=== PATIENT | female | born 1955 | race American Indian/Alaskan Native ===

== ENCOUNTER 2018-05-10 18:33 | Emergency (ER) | payer OTHER ==
[2018-05-10 19:14] VITALS: RESP 16; BMI 28.3
--- NOTE | 2018-05-10 19:40 | ED PDOC ---
Arrival/HPI - General Chief Complaint: High Blood Pressure Time Seen by Provider: 05/10/18 19:23 Historian: Patient - History of Present Illness Narrative History of Present Illness (Text): 05/10/18 19:40 62 y/o female, whose PMH includes hypertension, who presents to the emergency department complaining of high blood pressure and questionable slurred speech that began this morning at 09:30 AM. Patient reports called her PMD who advised her to come to the emergency department for further evaluation. Upon EMS arrival , they noted no stroke or slurred speech. Additionally, patient states taking baby Aspirin on the daily and is a current smoker. Patient denies any shortness of breath, chest pain, cough, headache, nausea, vomiting, diarrhea, abdominal pain, focal weaknesses, or other complaints. Time/Duration: 4-6 hours Symptom Onset: Sudden Symptom Course: Unchanged Activities at Onset: Rest Context: Home Past Medical History - Provider Review Nursing Documentation Reviewed: Yes - Infectious Disease Hx of Infectious Diseases: None - Tetanus Immunization Tetanus Immunization: Unknown - Reproductive Menopause: No - Past Medical History Past Medical History: No Previous - Cardiac Hx Cardiac Disorders: Yes Hx Hypertension: Yes - Pulmonary Hx Respiratory Disorders: No - Neurological Hx Neurological Disorder: No Other/Comment: episode of memory loss 2 weeks ago - HEENT Hx HEENT Disorder: No - Renal Hx Renal Disorder: No - Endocrine/Metabolic Hx Endocrine Disorders: No - Hematological/Oncological Hx Blood Disorders: No - Integumentary Hx Dermatological Disorder: No - Musculoskeletal/Rheumatological Hx Musculoskeletal Disorders: No Hx Falls: No - Gastrointestinal Hx Gastrointestinal Disorders: No - Genitourinary/Gynecological Hx Genitourinary Disorders: No - Psychiatric Hx Psychophysiologic Disorder: No Hx Depression: No Hx Emotional Abuse: No Hx Physical Abuse: No Hx Substance Use: No - Past Surgical History Past Surgical History: No Previous - Surgical History Other/Comment: 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 - Suicidal Assessment Feels Threatened In Home Enviroment: No Family/Social History - Physician Review Nursing Documentation Reviewed: Yes Family/Social History: Unknown Family HX Smoking Status: Current Some Days Smoker Hx Alcohol Use: No Hx Substance Use: No Hx Substance Use Treatment: No Allergies/Home Meds Allergies/Adverse Reactions: Allergies No Known Allergies Allergy (Verified 05/10/18 19:14) Home Medications: Home Meds Medication Instructions Recorded Confirmed Nebivolol [Bystolic] 0 mg PO DAILY 12/08/16 12/08/16 hydroCHLOROthiazide [Hydrodiuril] 25 mg PO DAILY 12/08/16 12/08/16 Review of Systems - Review of Systems Constitutional: absent: Fevers Respiratory: absent: SOB Cardiovascular: absent: Chest Pain Gastrointestinal: absent: Abdominal Pain Genitourinary Female: absent: Dysuria Skin: absent: Rash Neurological: Speech Changes (questionable slurred speech ). absent: Headache Endocrine: absent: Diaphoresis Physical Exam Vital Signs Reviewed: Yes Vital Signs Temp Pulse Resp BP Pulse Ox 05/10/18 19:08 98.5 F 59 L 16 180/85 H 99 Temperature: Afebrile Blood Pressure: Hypertensive Pulse: Bradycardic Respiratory Rate: Normal Appearance: Positive for: Well-Appearing, Non-Toxic, Comfortable Pain Distress: None Mental Status: Positive for: Alert and Oriented X 3 - Systems Exam Head: Present: Atraumatic, Normocephalic Pupils: Present: PERRL Extroacular Muscles: Present: EOMI Conjunctiva: Present: Normal Respiratory/Chest: Present: Rales (lung base rales ). No: Clear to Auscultation , Respiratory Distress, Accessory Muscle Use Cardiovascular: Present: Regular Rate and Rhythm, Normal S1, S2. No: Murmurs Abdomen: Present: Normal Bowel Sounds. No: Tenderness, Distention, Peritoneal Signs, Rebound, Guarding Neurological: Present: GCS=15, CN II-XII Intact, Speech Normal, Motor Func Grossly Intact, Normal Sensory Function, Normal Cerebellar Funct Skin: Present: Warm, Dry, Normal Color. No: Rashes Psychiatric: Present: Alert, Oriented x 3, Normal Insight, Normal Concentration Medical Decision Making ED Course and Treatment: 05/10/18 Impression: 62 y/o female with rales at base of left lung complaining of possible slurred speech since this morning Plan: -- Aspirin -- Reassess and disposition Progress Notes: 05/10/18 19:50 I offered patient to stay for TIA but she is refusing admission. Patient states she will follow up with PMD and is signing out as ama. The patient is choosing to leave against medical advice. I have personally explained to the patient that choosing to do so may result in permanent bodily harm or . I have discussed at great length that without further evaluation and monitoring there may be unforeseen circumstances and/or deterioration causing permanent bodily harm or as a result of their choice. The patient is alert, oriented, and shows the mental capacity to make clear decisions regarding the patient's health care at this time. The patient continues to wish to leave against medical advice. In light of the patient's decision to leave against medical advice, follow-up has been arranged and the patient is aware of the importance to following up as instructed. The patient has been advised that they should return to the emergency room immediately if they change their mind at any time, or if their condition begins to change or worsen in any way. Patient was also advised to stop smoking and was given 325 mg Aspirin. - Medication Orders Current Medication Orders: Aspirin (Aspirin) 325 mg PO STAT STA Stop: 05/10/18 19:41 NIHSS Stroke Scale 3 - Date/Time Evaluation Performed Date Performed: 05/10/18 Time Performed: 19:40 When Was NIHSS Performed: Baseline - How Severe is the Stroke Level of Consciousness: 0=Alert LOC to Questions: 0=Both comments correct LOC to commands: 0=Obeys both correctly Best Gaze: 0=Normal Visual: 0=No visual loss Facial: 0=Normal Motor Arm - Left: 0=No drift Motor Arm - Right: 0=No drift Motor Leg - Left: 0=No drift Motor Leg - Right: 0=No drift Limb Ataxia: 0=Absent Sensory: 0=Normal Best Language: 0=No aphasia Dysarthia: 0=Normal articulation Extinction & Inattention (Neglect): 0=Normal, no object Score: 0 Severity Of Stroke: 0 = No Stroke - Scribe Statement The provider has reviewed the documentation as recorded by the Rosa Blandon Provider Scribe Attestation: All medical record entries made by the Jvibjose were at my direction and personally dictated by me. I have reviewed the chart and agree that the record accurately reflects my personal performance of the history, physical exam, medical decision making, and the department course for this patient. I have also personally directed, reviewed, and agree with the discharge instructions and disposition. Disposition/Present on Arrival - Present on Arrival Any Indicators Present on Arrival: No History of DVT/PE: No History of Uncontrolled Diabetes: No Urinary Catheter: No History of Decub. Ulcer: No History Surgical Site Infection Following: None - Disposition Have Diagnosis and Disposition been Completed?: Yes Diagnosis: TIA (transient ischemic attack) Disposition Time: 19:44 Patient Plan: Observation Discharge Instructions (ExitCare): Transient Ischemic Attack Referrals: Mani Greene MD [Staff Provider] - Follow up with primary Forms: [employer] (Yakut), WORK NOTE - Notes Notes (Text): 05/10/18 19:45 followup with your primary physician for outpatient stroke evaluation and MRI, if your symptoms return please return to the ER immediately. be sure to address blood pressure control with your primary physician and stop smoking.
[2018-05-10 20:07] VITALS: BP 172/80; PULSE 60; TEMP 98.1; O2SAT 98
== END 2018-05-10 20:10 | disposition left against medical advice (07) ==
LOC: ED 18:33
DX: G45.9 Transient cerebral ischemic attack, unspecified (principal); I10 Essential (primary) hypertension; F17.210 Nicotine dependence, cigarettes, uncomplicated

== ENCOUNTER 2018-07-15 13:45 | Emergency (ER) | payer OTHER ==
[2018-07-15 14:22] VITALS: TEMP 97.9; O2SAT 100; BMI 28.1
[2018-07-15 15:35] LABS: BASO # 0.04 K/mm3 (0.0-2.0); BASO % 0.6 % (0.0-3.0); EOS # 0.1 (0.0-0.7); GRAN # 2.58 (1.4-6.5); GRAN % 36.7 % (50.0-68.0); INR 1.06; LYMPH # 3.7 (1.2-3.4); LYMPH % 53.3 % (22.0-35.0); MEAN CELL VOLUME 88.8 fl (80.0-105.0); MEAN CORPUSCULAR HEMOGLOBIN 29.6 pg (25.0-35.0); MEAN CORPUSCULAR HGB CONC 33.3 g/dl (31.0-37.0); MEAN PLATELET VOLUME 12.2 fl (7.0-11.0); MONO # 0.5 (0.1-0.6); MONO % 7.4 % (1.0-6.0); PARTIAL THROMBOPLASTIN TIME 34.6 Seconds (25.1-36.5); PROTHROMBIN TIME 12.1 SECONDS (9.4-12.5); RBC 5.07 10^6/uL (3.5-6.1); RED CELL DISTRIBUTION WIDTH 13.9 % (11.5-14.5)
[2018-07-15 15:39] LABS: URINE BILIRUBIN NEGATIVE (NEGATIVE); URINE BLOOD TRACE-INTACT (NEGATIVE); URINE GLUCOSE (UA) NEGATIVE (NEGATIVE); URINE LEUKOCYTE ESTERASE LARGE Leu/uL (NEGATIVE); URINE PROTEIN NEGATIVE mg/dL (<30 mg/dL); URINE UROBILINOGEN 0.2 E.U./dL (<1 E.U./dL)
[2018-07-15 15:41] LABS: ALB/GLOB RATIO 1.1 (1.1-1.8); ALBUMIN 4.3 g/dL (3.0-4.8); ALT/SGPT 14 U/L (7-56); AST/SGOT 20 U/L (14-36); BLOOD UREA NITROGEN 17 mg/dL (7-21); CALCIUM 9.8 mg/dL (8.4-10.5); GFR NON-AFRICAN AMERICAN > 60
[2018-07-15 15:43] LABS: URINE APPEARANCE SL CLOUDY (CLEAR); URINE COLOR YELLOW (YELLOW)
--- NOTE | 2018-07-15 15:47 | ED PDOC ---
Arrival/HPI - General Chief Complaint: Dizziness/Lightheaded Time Seen by Provider: 07/15/18 14:19 Historian: Patient - History of Present Illness Narrative History of Present Illness (Text): 07/15/18 15:36 62yo female with pmhx of hypertension and vertigo who was referred to ED by her PMD. Patient states she has been feeling dizzy and having double vision since yesterday. States it was worse this morning and she saw her PMD who called EMS and sent her to ED . She states her symptoms are currently better. States she was given a medication for Vertigo here 6months ago, which she finished. She wears prescription eyeglass for myopia. She denies headache, nausea, vomiting, recent URI, tinnitus, focal weakness, paresthesia, abdominal pain, any other complaint. Past Medical History - Provider Review Nursing Documentation Reviewed: Yes - Infectious Disease Hx of Infectious Diseases: None - Tetanus Immunization Tetanus Immunization: Unknown - Past Medical History Past Medical History: No Previous - Cardiac Hx Cardiac Disorders: Yes Hx Hypertension: Yes - Pulmonary Hx Respiratory Disorders: No - Neurological Hx Neurological Disorder: No Other/Comment: episode of memory loss 2 weeks ago - HEENT Hx HEENT Disorder: No - Renal Hx Renal Disorder: No - Endocrine/Metabolic Hx Endocrine Disorders: No - Hematological/Oncological Hx Blood Disorders: No - Integumentary Hx Dermatological Disorder: No - Musculoskeletal/Rheumatological Hx Musculoskeletal Disorders: No Hx Falls: No - Gastrointestinal Hx Gastrointestinal Disorders: No - Genitourinary/Gynecological Hx Genitourinary Disorders: No - Psychiatric Hx Psychophysiologic Disorder: No Hx Depression: No Hx Emotional Abuse: No Hx Physical Abuse: No Hx Substance Use: No - Past Surgical History Past Surgical History: No Previous - Surgical History Hx Section: Yes (x1) Other/Comment: 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 - Suicidal Assessment Feels Threatened In Home Enviroment: No Family/Social History - Physician Review Nursing Documentation Reviewed: Yes Family/Social History: Unknown Family HX Smoking Status: Light Smoker < 10 Cigarettes Daily Hx Alcohol Use: Yes Frequency of alcohol use: Socially Hx Substance Use: No Hx Substance Use Treatment: No Allergies/Home Meds Allergies/Adverse Reactions: Allergies No Known Allergies Allergy (Verified 05/10/18 19:14) Home Medications: Home Meds Medication Instructions Recorded Confirmed Metoprolol Tartrate [Lopressor] 1 tab PO DAILY 07/15/18 07/15/18 Review of Systems - Physician Review All systems were reviewed & negative as marked: Yes - Review of Systems Constitutional: Normal Eyes: Normal ENT: Normal Respiratory: Normal Cardiovascular: Normal Gastrointestinal: Normal Genitourinary Female: Normal Musculoskeletal: Normal Skin: Normal Neurological: Dizziness Endocrine: Normal Hemo/Lymphatic: Normal Psychiatric: Normal Physical Exam Vital Signs Reviewed: Yes Vital Signs Temp Pulse Resp BP Pulse Ox 07/15/18 17:47 54 L 18 158/85 H 100 07/15/18 14:19 97.9 F 55 L 19 137/77 100 Temperature: Afebrile Blood Pressure: Normal Pulse: Regular Respiratory Rate: Normal Appearance: Positive for: Well-Appearing, Non-Toxic, Comfortable Pain Distress: None Mental Status: Positive for: Alert and Oriented X 3 - Systems Exam Head: Present: Atraumatic, Normocephalic Pupils: Present: PERRL Extroacular Muscles: Present: EOMI Conjunctiva: Present: Normal Mouth: Present: Moist Mucous Membranes Neck: Present: Normal Range of Motion Respiratory/Chest: Present: Clear to Auscultation, Good Air Exchange. No: Respiratory Distress, Accessory Muscle Use Cardiovascular: Present: Regular Rate and Rhythm, Normal S1, S2. No: Murmurs Abdomen: No: Tenderness, Distention, Peritoneal Signs Back: Present: Normal Inspection Upper Extremity: Present: Normal Inspection. No: Cyanosis, Edema Lower Extremity: Present: Normal Inspection. No: Edema Neurological: Present: GCS=15, CN II-XII Intact, Speech Normal, Motor Func Grossly Intact, Normal Sensory Function, Normal Cerebellar Funct, Norm Deep Tendon Reflexes, Gait Normal, Memory Normal, Normal 2Pt Descrimination, Other ( No focal neurological deficit) Skin: Present: Warm, Dry, Normal Color. No: Rashes Psychiatric: Present: Alert, Oriented x 3, Normal Insight, Normal Concentration Medical Decision Making ED Course and Treatment: 07/16/18 01:26 62yo female in ED for dizziness and blurry vision. EKG Sinus chari; LVH @ 55bpm she was neurologically intact in ED. Lab was unremarkable. she had UTI and was treated with Rocephin in ED Pt was offered admission for further evaluation of her dizziness. sh however declined admission. Stated that she saw her Neurologist recently for dizziness and all test and imaging was negative. She requested that she rather f/u with her Neurologist as outpt. she reported that her symptoms resolved in ED. She was advised to return to ED if she changes her mind or for any new symptoms. She was DC home with keflex. - Lab Interpretations Lab Results: 07/15/18 15:21 07/15/18 15:21 Lab Results 07/15/18 15:21: TSH 3rd Generation 1.17 07/15/18 15:21: Sodium 137, Potassium 4.1, Chloride 104, Carbon Dioxide 27, Anion Gap 10, BUN 17, Creatinine 0.8, Est GFR ( Amer) > 60, Est GFR (Non- Af Amer) > 60, Random Glucose 109, Calcium 9.8, Magnesium 1.9, Total Bilirubin 0.5, AST 20, ALT 14, Alkaline Phosphatase 104, Lactate Dehydrogenase 286 L, Total Creatine Kinase 34 L, Troponin I < 0.01, Total Protein 8.0, Albumin 4.3, Globulin 3.8, Albumin/Globulin Ratio 1.1 07/15/18 15:21: Urine Color Yellow, Urine Appearance Sl cloudy, Urine pH 6.0, Ur Specific [place] 1.020, Urine Protein Negative, Urine Glucose (UA) Negative, Urine Ketones Negative, Urine Blood Trace-intact H, Urine Nitrate Positive H, Urine Bilirubin Negative, Urine Urobilinogen 0.2, Ur Leukocyte Esterase Large H , Urine RBC 2 - 5, Urine WBC 25 - 30, Ur Epithelial Cells 10 - 12, Urine Bacteria Many 07/15/18 15:21: PT 12.1, INR 1.06, APTT 34.6 07/15/18 15:21: WBC 7.0, RBC 5.07, Hgb 15.0, Hct 45.0, MCV 88.8, MCH 29.6, MCHC 33.3, RDW 13.9, Plt Count 250, MPV 12.2 H, Gran % 36.7 L, Lymph % (Auto) 53.3 H , Isabela % (Auto) 7.4 H, Eos % (Auto) 2.0, Baso % (Auto) 0.6, Gran # 2.58, Lymph # (Auto) 3.7 H, Isabela # (Auto) 0.5, Eos # (Auto) 0.1, Baso # (Auto) 0.04 - RAD Interpretation Radiology Orders: 07/15/18 14:42 HEAD W/O CONTRAST [CT] Stat - Medication Orders Current Medication Orders: Discontinued Medications Ceftriaxone Sodium (Rocephin 1 Gram Ivpb) 1 gm in 100 mls @ 200 mls/hr IVPB STAT STA PRN Reason: Protocol Stop: 07/15/18 16:29 Last Admin: 07/15/18 17:17 Dose: 200 mls/hr eMAR Start Stop Document 07/15/18 17:17 GMD (Rec: 07/15/18 17:18 GMD [id number]) Intravenous Solution Start Date 07/15/18 Start Time 17:17 End Date 07/15/18 End time 17:47 Total Infusion Time 30 Disposition/Present on Arrival - Present on Arrival Any Indicators Present on Arrival: No History of DVT/PE: No History of Uncontrolled Diabetes: No Urinary Catheter: No History of Decub. Ulcer: No History Surgical Site Infection Following: None - Disposition Have Diagnosis and Disposition been Completed?: Yes Diagnosis: Dizziness, UTI (urinary tract infection) Disposition: HOME/ ROUTINE Disposition Time: 17:00 Patient Plan: Discharge Condition: STABLE Discharge Instructions (ExitCare): Urinary Tract Infections in Adults, Vertigo (a Type of Dizziness) (DC) Additional Instructions: Follow up with your Doctor/Neurologist Return to ED for any new or worsening symptoms Prescriptions: Cephalexin [Keflex] 500 mg PO QID #28 capsule Referrals: Digna Rodriguez MD [Primary Care Provider] - Follow up with primary Forms: [employer] (Croatian)
[2018-07-15 15:51] LABS: URINE BACTERIA MANY (NEG); URINE WBC 25 - 30 /hpf (0-6)
[2018-07-15 15:53] LABS: TROPONIN I < 0.01 ng/mL
[2018-07-15] MEDS ORDERED: cefTRIAXone 1 gm 1 GM/100 ML BAG IVPB STA (16:00)
--- NOTE | 2018-07-15 16:35 | CT ---
Date of service: 07/15/2018 PROCEDURE: CT HEAD WITHOUT CONTRAST. HISTORY: dizziness COMPARISON: Comparison is made with 12/08/2016 TECHNIQUE: Axial computed tomography images were obtained through the head/brain without intravenous contrast. Radiation dose: Total exam DLP = mGy-cm. This CT exam was performed using one or more of the following dose reduction techniques: Automated exposure control, adjustment of the mA and/or kV according to patient size, and/or use of iterative reconstruction technique. FINDINGS: HEMORRHAGE: No intracranial hemorrhage. BRAIN: No mass effect or edema. Again noted is chronic lacunar infarct at the right caudate head. Heterogeneous periventricular hypodensity in the white matter likely represent chronic microvascular white matter ischemic disease again noted. VENTRICLES: Unremarkable. No hydrocephalus. CALVARIUM: Unremarkable. PARANASAL SINUSES: Unremarkable as visualized. No significant inflammatory changes. MASTOID AIR CELLS: Unremarkable as visualized. No inflammatory changes. OTHER FINDINGS: None. IMPRESSION: No evidence of acute intracranial hemorrhage mass effect or midline shift. White matter changes again noted likely represent chronic microvascular white matter ischemic disease. Chronic lacunar infarct at the right caudate head again noted.
[2018-07-15 17:49] VITALS: BP 158/85; PULSE 54; RESP 18
--- NOTE | 2018-07-15 20:49 | CARD ---
APPROVED REPORT Date of service: 07/15/2018 EKG Measurement Heart [id number] <Conclusion> Sinus bradycardia Left ventricular hypertrophy with repolarization abnormality Cannot rule out Inferior infarct, age undetermined Abnormal ECG
== END 2018-07-15 18:31 | disposition home or self-care (01) ==
LOC: ED 13:45
DX: R42 Dizziness and giddiness (principal); N39.0 Urinary tract infection, site not specified; I10 Essential (primary) hypertension; F17.210 Nicotine dependence, cigarettes, uncomplicated
CPT/HCPCS: 70450; 80053; 81001; 82550; 83615; 83735; 84443; 84484; 85025; 85610; 85730; 87086; 93005; 96365; 99285; J0696